=== PATIENT | female | born 1990 | race Caucasian/White ===

== ENCOUNTER 2023-02-16 18:22 | Emergency (ER) | payer BC, SELFPAY ==
[2023-02-16 18:51] VITALS: BP 122/88; PULSE 91; RESP 16; TEMP 36.8; O2SAT 99; BMI 25.7
--- NOTE | 2023-02-16 20:05 | ED_ITS ---
HPI - Wound/Laceration General Time Seen by Provider: 20:05 Date Seen: 02/16/23 Chief Complaint: Laceration/Wound Stated Complaint: finger laceration Time Seen by Provider: 02/16/23 19:57 Source: patient and RN notes reviewed Mode of arrival: ambulatory Limitations: no limitations History of Present Illness HPI narrative: This 32-year-old female is coming in with a small laceration to her left finger that she states 1 stop bleeding. She states she bled through for bandages since this happen. She was cutting onions and accidentally got the edge of her left 3rd finger. She states her tetanus is up-to-date, had it with her last . Onset (ago): minute(s) Place: home Patient tetanus UTD: Yes Context: accidental Related Data Home Medications Medication Instructions Recorded Confirmed No Known Home Medications 02/16/23 02/16/23 Allergies Allergy/AdvReac Type Severity Reaction Status Date / Time No Known Drug Allergies Allergy Verified 02/16/23 18:54 Review of Systems Narrative: As per HPI. PFSH PFSH Social History Smoking Status: Never smoker Do you use any of these nicotine containing products: None How often do you have a drink containing alcohol: 4 or more times a week How many standard drinks containing alcohol do you have on a typical day: 1 or 2 AUDIT-C Alcohol total score: 4 Non-prescribed substance use: denies use Exam Const: Vital Signs, click to edit/add: Vital Signs - 24 hr 02/16/23 18:51 Temperature 98.2 F Pulse Rate [Left P ulse Oximeter] 91 Respiratory Rate 16 Blood Pressure [Ri ght Upper Arm] 122/88 Pulse Oximetry 99 Oxygen Delivery Me thod Room Air Patient had her dressing taken down, there was immediate bleeding from a very small wound along the lateral nail fold of her left 3rd finger. It is probably only about 2 mm wide and 3 mm long but continues to bleed. She completely d enuded the skin, there is nothing to repair, skin is been shaved off. Gelfoam was applied and pressure dressing of the finger over this. Bleeding did seem to subside with this dressing. Documenting provider has reviewed patient's vital signs: yes Course Vital Signs Vital signs: Initial Vital Signs Temperature 98.2 F 02/16/23 18:51 Temperature Source Temporal Artery Scan 02/16/23 18:51 Pulse Rate 91 02/16/23 18:51 Respiratory Rate 16 02/16/23 18:51 Blood Pressure 122/88 02/16/23 18:51 Blood Pressure Mean 99 02/16/23 18:51 Blood Pressure Position Sitting 02/16/23 18:51 Pulse Oximetry 99 02/16/23 18:51 Oxygen Delivery Method Room Air 02/16/23 18:51 Vital Signs Temperature 98.2 F 02/16/23 18:51 Pulse Rate 91 02/16/23 18:51 Respiratory Rate 16 02/16/23 18:51 Blood Pressure 122/88 02/16/23 18:51 Pulse Oximetry 99 02/16/23 18:51 Oxygen Delivery Method Room Air 02/16/23 18:51 Temperature 98.2 F 02/16/23 18:51 Pulse Rate 91 02/16/23 18:51 Respiratory Rate 16 02/16/23 18:51 Blood Pressure 122/88 02/16/23 18:51 Pulse Oximetry 99 02/16/23 18:51 Oxygen Delivery Method Room Air 02/16/23 18:51 Discharge Plan Discharge Clinical Impression: Avulsion of skin of finger Qualifiers: Encounter type: initial encounter Qualified Code(s): S61.209A - Unspecified open wound of unspecified finger without damage to nail, initial encounter Patient Disposition: Home, Self-Care Condition: Stable Instructions: Skin Avulsion (ED) Additional Instructions: May take down the dressing on the finger that is present tomorrow morning but try to leave the Gelfoam intact. Removing the Gelfoam to early will likely cause this to bleed again. Can reapply bandaging if need be. Otherwise, in roughly 3 or so days, can start to get this finger wet/wound wet as usual, Gelfoam will fall off on its own. Would then just recommend using bacitracin and bandages as needed until wound healed. Activity Level: Activity as Tolerated Prescriptions: No Action No Known Home Medications Stand Alone Forms: My[facility] Info Instructions
[2023-02-16 20:30] VITALS: BP 115/87; PULSE 96; RESP 16
== END 2023-02-16 20:40 | disposition home or self-care (01) ==
LOC: ED 20:30
PROVIDERS: Emergency Provider Family Medicine
DX: S61.203A Unspecified open wound of left middle finger without damage to nail, initial encounter (principal); W26.0XXA Contact with knife, initial encounter
CPT/HCPCS: 99282; 99283